=== PATIENT | female | born 1960 | race Asian ===

== ENCOUNTER 2017-08-03 13:27 | Emergency (ER) | payer OTHER ==
[~2017-08-03] VITALS: Ht 170.2 cm; Wt 98.0 kg
[2017-08-03 13:35] VITALS: Ht 170.2 cm; Wt 98.0 kg
[2017-08-03 15:32] VITALS: BP 140/73
== END 2017-08-03 15:32 | disposition home or self-care (01) ==
LOC: ED 13:27
DX: L97.219 Non-pressure chronic ulcer of right calf with unspecified severity (principal); L03.115 Cellulitis of right lower limb

== ENCOUNTER 2017-09-14 12:21 | Emergency (ER) | payer OTHER ==
[~2017-09-14] VITALS: Ht 170.2 cm; Wt 93.9 kg
[2017-09-14 12:40] VITALS: Ht 170.2 cm; Wt 93.9 kg
[2017-09-14 13:17] VITALS: BP 148/98
== END 2017-09-14 13:17 | disposition home or self-care (01) ==
LOC: ED 12:21
DX: L20.9 Atopic dermatitis, unspecified (principal); Z91.010 Allergy to peanuts; Z91.018 Allergy to other foods